=== PATIENT | female | born 1950 | race Caucasian/White ===

== ENCOUNTER 2018-01-27 13:27 | Outpatient (CLI) | payer MEDICARE, OTHER ==
--- NOTE | 2018-01-27 15:20 | RAD ---
CHEST 2 VIEW: Date: 01/27/18 HISTORY: Dyspnea. COMPARISON: 01/23/08. FINDINGS: Cardiac silhouette and pulmonary vasculature are upper limits of normal. Mediastinum is midline with aortic calcification and postoperative changes. No confluent air space consolidation, pneumothorax, o r pleural fluid. IMPRESSION: Atherosclerosis. No active cardiopulmonary abnormalities are demonstrated. POS: [facility]
== END 2018-01-27 13:28 | disposition home or self-care (01) ==
LOC: RAD 13:27
PROVIDERS: ATTEND Internal Medicine Pulmonary Disease
DX: R06.00 Dyspnea, unspecified (principal); I70.90 Unspecified atherosclerosis
CPT/HCPCS: 71046